=== PATIENT | female | born 2000 | race Caucasian/White ===

== ENCOUNTER → 2022-04-10 | Outpatient (CLI) | payer OTHER, SELFPAY ==
[2022-04-10 19:14] LABS: Thyroid Stim Hormone (TSH) 2.78 uIU/mL (0.358-3.74)
== END | disposition home or self-care (01) ==
PROVIDERS: Visit Provider Family Medicine
DX: F41.9 Anxiety disorder, unspecified (principal)
CPT/HCPCS: 36415; 84443

== ENCOUNTER → 2022-05-03 | Outpatient (CLI) | payer OTHER, SELFPAY ==
[2022-05-09 14:26] LABS: HPV APTIMA, High Risk Negative (Negative); HPV Reflexed? YES, CHARGE PATIENT
== END | disposition home or self-care (01) ==
LOC: LABSPEC 10:42
PROVIDERS: Referring Provider Nurse Practitioner Family; Visit Provider Nurse Practitioner Family
DX: Z00.00 Encounter for general adult medical examination without abnormal findings (principal)
CPT/HCPCS: 87624; 88175; G0145